=== PATIENT | female | born 1935 | race Caucasian/White ===

== ENCOUNTER 2020-07-24 08:36 | Observation (INO) | payer MEDICARE, BC ==
--- NOTE | 2020-07-24 09:03 | EDM.PDOC ---
ED HPI GENERAL MEDICAL PROBLEM - General Chief Complaint: Abdominal Pain Stated Complaint: ABD PAIN Time Seen by Provider: 07/24/20 08:50 Source of Information: Reports: Patient History Limitations: Reports: No Limitations - History of Present Illness INITIAL COMMENTS - FREE TEXT/NARRATIVE: has not been able to have BM since friday states she has abdominal pain , pain in the rectal area since she made attempts to go has nausea but no vomiting no blood in stools Onset Date: 07/22/20 Duration: Day(s): (3), Getting Worse Location: Reports: Abdomen Improves with: Reports: None Worsens with: Reports: None Associated Symptoms: Reports: Loss of Appetite, Malaise abdomen pain Pain Score (Numeric/FACES): 5 - Related Data Allergies Allergy/AdvReac Type Severity Reaction Status Date / Time latex Allergy Severe Itching Verified 07/24/20 19:54 shrimp Allergy Severe Itching Verified 07/24/20 19:53 Home Meds: Home Meds Clopidogrel [Plavix] 75 mg PO DAILY 07/24/20 [History] Furosemide [Lasix] 40 mg PO DAILY 07/24/20 [History] Lactobacillus 3/Fos/Pantethine [Probiotic & Acidophilus] 1 each PO DAILY 07/24/20 [History] Levothyroxine [Synthroid] 100 mcg PO ACBREAKFAST 07/24/20 [History] Sertraline HCl [Zoloft] 50 mg PO BEDTIME 07/24/20 [History] Simvastatin [Zocor] 40 mg PO BEDTIME 07/24/20 [History] Potassium Chloride 20 meq PO DAILY #60 cap.er 07/25/20 [Rx] polyethylene glycoL 3350 [MiraLAX] 17 gm PO DAILY #1 jar 07/25/20 [Rx] ED ROS GENERAL - Review of Systems Review Of Systems: See Below Constitutional: Reports: Weakness HEENT: Reports: No Symptoms Respiratory: Reports: No Symptoms Cardiovascular: Reports: No Symptoms Endocrine: Reports: No Symptoms GI/Abdominal: Reports: Constipation (with over incontinence). Denies: Flatus Skin: Reports: No Symptoms Neurological: Reports: No Symptoms Psychiatric: Reports: No Symptoms Hematologic/Lymphatic: Reports: No Symptoms ED EXAM, GI/ABD - Physical Exam Exam: See Below Exam Limited By: No Limitations General Appearance: Alert, WD/WN Eyes: Bilateral: EOMI Throat/Mouth: Normal Inspection Head: Atraumatic, Normocephalic Neck: Supple, Non-Tender Respiratory/Chest: No Respiratory Distress, Lungs Clear Cardiovascular: Regular Rate, Rhythm GI/Abdominal Exam: Soft, Distended, Abnormal Bowel Sounds (hypoactive) Rectal (Female) Exam: Fecal Impaction, Rectal Fissure (?), Tenderness (austyn inteh rectal shpiunter, rectal vault empty), Other (increased rectal tone) Extremities: Normal Inspection Neurological: Alert, Oriented, CN II-XII Intact Psychiatric: Normal Affect Skin Exam: Warm, Dry, Intact Course - Vital Signs Last Recorded V/S: Last Vital Signs Temp 36.2 C 07/25/20 08:00 Pulse 74 07/25/20 08:00 Resp 16 07/25/20 08:00 BP 138/71 07/25/20 08:00 Pulse Ox 99 07/25/20 08:00 - Orders/Labs/Meds Labs: Laboratory Tests 07/24/20 07/24/20 07/24/20 Range/Units 10:12 13:45 13:45 WBC 6.6 (4.5-12.0) X10-3/uL RBC 4.20 (3.23-5.20) x10(6)uL Hgb 13.6 (11.5-15.5) g/dL Hct 40.6 (30.0-51.3) % MCV 96.6 H (80-96) fL MCH 32.3 (27.7-33.6) pg MCHC 33.5 (32.2-35.4) g/dL RDW 13.8 (11.5-15.5) % Plt Count 214 (125-369) X10(3)uL Sodium 142 (135-145) mmol/L Potassium 3.4 L (3.5-5.3) mmol/L Chloride 105 (100-110) mmol/L Carbon Dioxide 26 (21-32) mmol/L BUN 18 (7-18) mg/dL Creatinine 1.1 H (0.55-1.02) mg/dL Est Cr Clr Drug Dosing 32.13 mL/min Estimated GFR (MDRD) 47 L (>60) BUN/Creatinine Ratio 16.4 (9-20) Glucose 97 (80-116) mg/dL Calcium 9.4 (8.6-10.2) mg/dL Urine Color Yellow (YELLOW) Urine Appearance Clear (CLEAR) Urine pH 5.0 (5.0-6.5) Ur Specific [place] 1.010 (1.010-1.025) Urine Protein Negative (NEGATIVE) mg/dL Urine Glucose (UA) Normal (NORMAL) mg/dL Urine Ketones Negative (NEGATIVE) mg/dL Urine Occult Blood Negative (NEGATIVE) Urine Nitrite Negative (NEGATIVE) Urine Bilirubin Negative (NEGATIVE) Urine Urobilinogen Normal (NEGATIVE) mg/dL Ur Leukocyte Esterase Negative (NEGATIVE) Urine WBC 0-5 (0-5) Ur Squamous Epith Cells Occasional (NS,R,O) Urine Bacteria Few H (NS) Meds: Medications Discontinued Medications Generic Name Dose Route Start Last Admin Trade Name Freq PRN Reason Stop Dose Admin Bisacodyl 10 mg 07/24/20 10:03 07/24/20 10:31 Dulcolax RECTAL 07/24/20 10:04 10 mg ONETIME ONE Administration Clopidogrel Bisulfate 75 mg 07/25/20 09:00 07/25/20 10:27 Plavix PO 75 mg DAILY TOMASZ Administration Sodium Chloride 1,000 mls @ 100 mls/hr 07/24/20 13:45 07/24/20 16:00 Normal Saline IV 100 mls/hr ASDIRECTED TOMASZ Administration Potassium Chloride/Sodium Chloride 1,000 mls @ 100 mls/hr 07/24/20 18:30 07/24/20 22:13 Normal Saline With 20 Meq Kcl IV 07/25/20 07:59 100 mls/hr ASDIRECTED TOMASZ Administration Potassium Chloride/Sodium Chloride 1,000 mls @ 100 mls/hr 07/25/20 08:00 07/25/20 10:09 Normal Saline With 20 Meq Kcl IV Not Given Q10H TOMASZ Iopamidol 100 ml 07/24/20 13:51 07/24/20 14:32 Isovue-370 (76%) IV 07/24/20 13:52 81 ml . DIRECTED ONE Administration Lactulose 20 gm 07/24/20 18:23 07/24/20 20:13 Cephulac PO 07/24/20 18:24 Not Given ONETIME ONE Levothyroxine Sodium 100 mcg 07/25/20 07:30 07/25/20 10:27 Synthroid PO 100 mcg ACBREAKFAST TOMASZ Administration Lidocaine HCl Confirm 07/24/20 09:51 07/24/20 10:30 Glydo Administered 07/24/20 09:52 Not Given Dose 6 ml .ROUTE .STK-MED ONE Lidocaine HCl 1 ml 07/24/20 11:00 Glydo .XX ASDIRECTED TOMASZ Lidocaine HCl 6 ml 07/24/20 11:47 07/24/20 10:00 Glydo .XX 6 ml ASDIRECTED TOMASZ Administration Lidocaine/Prilocaine 5 gm 07/24/20 09:48 07/24/20 10:27 Emla Crm TOP 07/24/20 09:49 Not Given ONETIME ONE Lorazepam 0.5 mg 07/24/20 15:38 07/24/20 16:00 Ativan IVPUSH 07/24/20 15:39 0.5 mg ONETIME ONE Administration Polyethylene Glycol 17 gm 07/25/20 09:45 07/25/20 10:28 Miralax PO 17 gm DAILY TOMASZ Administration Potassium Chloride 20 meq 07/25/20 10:00 07/25/20 10:27 Klor-Con M20 PO 20 meq DAILY TOMASZ Administration Sertraline HCl 50 mg 07/24/20 21:30 07/24/20 22:16 Zoloft PO 07/24/20 21:31 Not Given ONETIME ONE Sertraline HCl 50 mg 07/25/20 21:00 Zoloft PO BEDTIME TOMASZ - Re-Assessments/Exams Free Text/Narrative Re-Assessment/Exam: 07/24/20 16:34 Had Xray of abd that was suggestive of partial obstruction pt has had rectal exam : rectal vault empty Suppository : minimal amount of stool , watery stool Enema done : minimal return CT abd done: suggestive of partial obstruction Attempts made again by pt to have BM : minimal Pt given Ativan to help relax her Another rectal exam don e: only watery foul smelling stool noted Call made to Hospitalist : plan admit for bowel rest and further attempts to disimpact Departure - Departure Time of Disposition: 13:20 Disposition: Refer to Observation Condition: Fair Clinical Impression: Abdominal pain, Small bowel obstruction, Partial obstruction of small intestine - Discharge Information *PRESCRIPTION DRUG MONITORING PROGRAM REVIEWED*: Not Applicable *COPY OF PRESCRIPTION DRUG MONITORING REPORT IN PATIENT KERRI: Not Applicable Sepsis Event Note (ED) - Evaluation Sepsis Screening Result: No Definite Risk
[2020-07-24] MEDS ORDERED: Lidocaine/Prilocaine 2.5-2.5% Crm 5 GM Tube TOP ONE (09:48)
[2020-07-24] MEDS ORDERED: Lidocaine 2% HCl 6 ML JEL.PF.APP ONE (09:51)
[2020-07-24] MEDS ORDERED: Bisacodyl 10 MG Supp RECTAL ONE (10:03)
[2020-07-24] MEDS ORDERED: Lidocaine 2% HCl 6 ML JEL.PF.APP SCH ×2 (11:00→11:47)
--- NOTE | 2020-07-24 11:27 | CR ---
INDICATION: Abdomen pain. ABDOMEN: Four images of the abdomen in supine and upright projection were obtained 07/24/20 - no comparison. 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 Somewhat increased density in the lower pelvis may be on the basis of urinary bladder distention and presence of the uterus, although process such as ascites would be a consideration also. Multiple air-fluid levels are noted in the large and small bowel without a gross degree of distention of the bowel to suggest a longstanding mechanically obstructive process. Rather, the appearance more likely is on the basis of a process such as gastroenteritis or possibly a paralytic ileus such as secondary to inflammatory disease - pancreatitis, cholecystitis, diverticulitis, etc. This should be correlated clinically. Calcifications are noted in the abdominal aorta and iliac arteries. No definite mass lesions or nonvascular pathologic calcifications were identified. IMPRESSION: Multiple air-fluid levels in the large and small bowel, etiology is indeterminate, could be on the basis of paralytic ileus or possibly gastroenteritis, but should be correlated clinically. An early or partial mechanically obstructive process would be a consideration. Report was called to Dr. Vega at 1041 hours. [facility]
[2020-07-24] MEDS ORDERED: Sodium Chloride 0.9% 1,000 ML IV SCH (13:45)
[2020-07-24] MEDS ORDERED: Iopamidol 755 Mg/ML 100 ML Bottle IV ONE (13:51)
[2020-07-24] MEDS ORDERED: LORazepam 2 MG/ML SDV IVPUSH ONE (15:38)
[2020-07-24] MEDS ORDERED: Lactulose Soln 10 GM/15 ML 30 ML UD Cup PO ONE (18:23)
[2020-07-24] MEDS ORDERED: NS + KCl 20mEq/L 1,000 ML IV SCH (18:30)
[2020-07-24] MEDS ORDERED: Sertraline 50 MG Tab *PTOM PO SCH (21:00)
[2020-07-24] MEDS: Sertraline 50 MG Tab PO ONE ×2 (22:13→22:16)
--- NOTE | 2020-07-25 06:54 | CT ---
INDICATION: Generalized abdominal pain, question obstruction. CT ABDOMEN AND PELVIS WITH CONTRAST: Spiral 3.75 mm axial sections were obtained through the abdomen and pelvis with oral and IV contrast (80 cc Isovue-370 at 2 cc per second with 100 second delay) with sagittal and coronal reconstructions 07/24/20 - no comparison. Total exam DLP was 346.85 mGy-cm. The heart is enlarged. The pericardium is very minimally thickened. The lower lung lopes and pleural spaces visualized showed no definite active infiltrate or effusion. However, there does appear to be some patchy heavy markings at the lingula which could be on the basis of fibrosis, but do make it difficult to exclude a minimal patchy bronchopneumonia. The liver appeared unremarkable. No gallstones were demonstrated. Irregularity of the renal cortices is noted, to a greater extent on the right than left compatible with renal cortical scarring, no obstructive uropathy or definite renal calculi were seen. The spleen appears unremarkable. The pancreas appeared grossly normal. The common bile duct is dilated at approximately 11 mm, a specific etiology was not identified. The possibility of a common bile duct neoplasm or a small neoplasm of the pancreatic head is difficult to exclude - MRI may be helpful for further evaluation in that regard if obstruction at the level of the common bile common duct is expected clinically. Fairly extensive calcifications are noted in the abdominal aorta, iliac arteries, and femoral arteries with some calcifications in the splenic artery and superior mesenteric artery. No definite retroperitoneal mass was seen. The appendix is absent consistent with history of its removal. No evidence of free air was identified. Multiple air-fluid levels are noted in the colon, the colon appears slightly prominent in caliber. There does appear to be fluid throughout the colon raising question of a process such as gastroenteritis. Gas and stool is noted in the rectum. The bowel is somewhat indistinct in that area making it difficult to exclude a partially obstructive process. Additional examination, such as colonoscopy or barium enema may be helpful. The urinary bladder appeared normal. A dextroconcave rotoscoliosis of the thoracolumbar spine is noted of moderately severe degree. Hypertrophic degenerative changes and disk disease are noted throughout the thoracolumbosacral spine with vacuum disk phenomena at almost all levels. No additional organomegaly, mass lesions, or free fluid collections were identified in the abdomen or pelvis. IMPRESSION: 1. Somewhat distended colon filled with fluid with multiple air-fluid levels, gastroenteritis felt to be most likely although a distal partial obstructive process at the level of the rectosigmoid is difficult to exclude. This should be correlated clinically. Followup studies may be helpful including colonoscopy or barium enema. 2. Post appendectomy. 3. Minimal heavy markings at the lingula which could represent fibrosis, possibly minimal patchy bronchopneumonia - correlate clinically. 4. Scoliosis. 5. Hypertrophic degenerative changes and disk disease thoracolumbosacral spine. 6. 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 7. Renal cortical scarring, right somewhat greater than left. 8. Dilated common bile duct, no definite etiology is identified. This should be correlated clinically and with lab values. If obstructive biliary tree is suspected clinically, additional examination may be warranted such as MRI - MRCP with attention to the pancreatic head area. 9. Degenerative changes are noted at the hip joints, right greater than left with loss of joint space, much more severe on the right than left. 10. Hypertrophic degenerative changes sacroiliac joints somewhat greater on the right than left. Report was called to Dr. Vega at 1522 hours. [facility]
[2020-07-25] MEDS ORDERED: Levothyroxine 100 MCG Tab *PTOM PO SCH (07:30)
[2020-07-25] MEDS ORDERED: NS + KCl 20mEq/L 1,000 ML IV SCH (08:00)
[2020-07-25] MEDS ORDERED: Clopidogrel 75 MG Tab *PTOM PO SCH (09:00)
[2020-07-25] MEDS ORDERED: Polyethylene Glycol 3350 Powder 17 GM Packet PO SCH (09:45)
[2020-07-25] MEDS ORDERED: Potassium Chloride 20 MEQ Tab.ER PO SCH (10:00)
--- NOTE | 2020-07-25 10:37 | HP ---
ADMISSION DATE: 07/24/2020 CHIEF COMPLAINT: Abdominal pain and constipation. HISTORY OF PRESENT ILLNESS: Ms. Arechiga is an 85-year-old woman from [place], [place] with a history of CVA, hypothyroidism, hyperlipidemia, anxiety, and low back pain. According to the patient, she was in her usual state of health until approximately Friday 5 days ago, and at that time, she began to have some mild cramping and did not have a bowel movement. On Friday, she had increased amount of pain, and Friday, 3 days ago, she began to have difficulty passing urine. She came in to the emergency room yesterday because of cramping. She had a slight liquid stool, but was distended and still not had a bowel movement. She was x-rayed and a CT of the abdomen was done showing partial bowel obstruction felt to be due to constipation. She was given enemas in the emergency room, laxative and had no results, so she was admitted for further treatment overnight. The patient was given oral lactulose and last evening had a large BM, she states much larger than average BM for her. Subsequent to that time, she has passed some liquid stool and her cramping has completely resolved. The patient denies any episodes of pain, cramping, etc, similar to this. She states she has not had a colonoscopy done. She has not had abdominal surgeries or injuries to the abdomen. PAST MEDICAL HISTORY: She gives a history of a remote CVA without apparent residual. She is status post lumbar laminectomy x2, reverse right shoulder arthroplasty in 2016. She sustained a dog bite to her right leg that resulted in septic arthritis of the right knee. She was on IV antibiotics for 2-1/2 weeks and oral antibiotics for another 3 months after that. She was subsequently bitten on the left knee by the same dog later without serious sequelae. She is status post appendectomy, bilateral cataract surgery. She is 4, para 4, with normal deliveries. She has never had jaundice, hepatitis, or blood transfusions. She has chronic hypothyroidism. She has had right wrist fracture and osteoarthritis of the neck. She has had depression and hyperlipidemia. She has a history of chronic venous insufficiency with ankle edema and has been on diuretic for many years. She has had colonoscopy in February of 2018 for diarrhea that showed a tubular adenoma. MEDICATIONS: 1. Simvastatin 40 mg daily. 2. Plavix 75 mg daily. 3. Furosemide 40 mg daily. 4. Levothyroxine 100 mcg daily. 5. Sertraline 50 mg daily. ALLERGIES: Penicillin, reaction not listed; Etodolac caused hives; Lipitor caused muscle pains; shellfish, not listed. HABITS: [id number] history of cigarette smoking. She smokes 5 to 6 cigarettes per day now. Rare alcohol. FAMILY AND SOCIAL HISTORY: The patient's father at 83 of heart disease. Mother at 83 of heart disease. One brother has cancer. Another brother is healthy. SOCIAL HISTORY: The patient has been for 52 years. She lives with her in [place]. 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 She has a daughter in [place], a daughter in [place], a son in [place], and a son in [place]. REVIEW OF SYSTEMS: GENERAL: No seizure, syncope, or recent significant weight change. SKIN: Negative for rash. HEENT: She does report poor and declining hearing. No sore throat or URI. No cough or purulent sputum. No chest pain or palpitations. No abdominal pain prior to this episode. No hematochezia or melena. No hematuria or UTI symptoms. No joint inflammation. She reports chronic ankle swelling but wears support stockings everyday. No skin rash. PHYSICAL EXAMINATION: GENERAL: She is alert, comfortable, and pleasant. She is a somewhat poor historian for details, however. VITAL SIGNS: Blood pressure 138/71, pulse 74 and regular, respirations normal, temperature 97.2, weight 132 pounds, and O2 saturation 99% on room air. SKIN: Anicteric. Warm and dry without rash. HEENT: Show pupils to be equal and reactive. Oropharynx is clear. LUNGS: Clear to the bases. HEART: Regular with a 2/6 systolic murmur over the precordium. Carotids are brisk without bruits. There is no JVD. ABDOMEN: Normal bowel sounds. Slightly tympanitic. No significant distention. EXTREMITIES: Warm, well perfused. Trace edema at the sock lines. LABORATORY DATA: White count 5900, hemoglobin 13.4. Admission potassium 3.4, this morning up to 3.6, magnesium 1.7. COVID negative. Urinalysis negative. Initial abdominal x-rays just suggested partial bowel obstruction. X-ray of the abdomen done this morning shows gas throughout the colon with remnants of stool visible and improvement in previous air-fluid levels. ASSESSMENT: Constipation, resolved. PLAN: We will advance her diet, increase activity, place her on oral potassium, and we will likely let her be discharged later today if she tolerates p.o. intake well. /[id number] CA/ANA
--- NOTE | 2020-07-25 10:50 | DISCH ---
DISCHARGE DATE: 07/25/2020 PRIMARY FINAL DIAGNOSIS: Obstipation with bowel obstruction. OTHER DIAGNOSES: 1. History of cerebrovascular accident. 2. Hypothyroidism. 3. Mild cognitive deficits. 4. Depression. 5. Hearing loss. 6. Hypokalemia. OPERATIONS: None. COMPLICATIONS: None. SUMMARY: Mrs. Arechiga is an 85-year-old woman who came into the emergency room on the day of admission because of several days of no bowel movement. She was having strong cramping. She was given multiple enemas in the ER, laxative, IV fluid and did not pass stool. She was admitted to the hospital. She was given an oral dose of lactulose and last evening she had a large bowel movement that she reports was quite a bit larger than a normal stool for her. Subsequent to that, her cramping went away. Her appetite has returned and she states she feels back to normal. Repeat abdominal x-ray this morning shows resolution of air-fluid levels, but still a moderate amount of gas in the intestine. The patient is discharged to home in improved condition to continue medications as follows: 1. Simvastatin 40 mg at bedtime. 2. Potassium 10 mEq two tablets daily. 3. MiraLAX 17 g daily. 4. Probiotic one daily. 5. Furosemide 40 mg daily. 6. Sertraline 50 mg at bedtime. 7. Levothyroxine 100 mcg daily. 8. Plavix 75 mg daily. She is to have a full followup appointment with her regular doctor in 5 to 7 days to re-evaluate her abdomen and recheck her serum potassium. She is to call should there be questions or problems prior to that time. /[id number] CA/ANA
--- NOTE | 2020-07-25 12:20 | CR ---
INDICATION: Abdominal pain. ABDOMEN 2 VIEW: Three images of the abdomen in supine and upright projections were obtained 07/25/20 and compared with 07/24/20 again revealing multiple air- fluid levels with mildly distended large bowel. The air-fluid levels are showing evidence of oral contrast which was utilized for CT of the abdomen from 07/24/20. The contrast is within the large bowel and again does not suggest a mechanically obstructive process of a complete nature, but could represent a mechanically obstructive process. Gastroenteritis remains a possibility, as well as paralytic ileus although there does appear to be significant flow into the colon from the small bowel with little residual if any in the small bowel. Urinary bladder appeared normal filled with IV contrast from the previous CT. Study was otherwise unremarkable as far as significant acute findings. IMPRESSION: Continued air-fluid levels in the colon - specifically air contrast levels with flow of barium contrast out of the small bowel into the colon and still no significant distention of the colon. Findings remain compatible with a relative paralytic ileus or a partially obstructive process at the distal colon. SUS[facility]
[2020-07-25] MEDS ORDERED: Sertraline 50 MG Tab *PTOM PO SCH (21:00)
== END 2020-07-25 13:40 | disposition home or self-care (01) ==
LOC: FB.ED 08:36 → FB.MS 16:45
PROVIDERS: ADMIT Family Medicine; ATTEND Family Medicine
DX: K59.00 Constipation, unspecified (principal); K56.609 Unspecified intestinal obstruction, unspecified as to partial versus complete obstruction; E03.9 Hypothyroidism, unspecified; R41.89 Other symptoms and signs involving cognitive functions and awareness; E87.6 Hypokalemia; H91.90 Unspecified hearing loss, unspecified ear; F41.9 Anxiety disorder, unspecified; E78.5 Hyperlipidemia, unspecified; Z90.49 Acquired absence of other specified parts of digestive tract; Z98.890 Other specified postprocedural states; Z88.8 Allergy status to other drugs, medicaments and biological substances; Z88.0 Allergy status to penicillin; Z91.013 Allergy to seafood; Z20.828 Contact with and (suspected) exposure to other viral communicable diseases; Z86.73 Personal history of transient ischemic attack (TIA), and cerebral infarction without residual deficits; Z79.899 Other long term (current) drug therapy; Z79.890 Hormone replacement therapy; Z79.02 Long term (current) use of antithrombotics/antiplatelets
CPT/HCPCS: 36415; 74019; 74177; 80048; 81001; 83735; 85025; 85027; A9270; J2060; J3480; J7030; Q9967; U0002; 96361; 96365; 96366; 96374; 96375; 99217; 99218; 99284; 99285-25; G0378

== ENCOUNTER 2021-09-21 17:20 | Emergency (ER) | payer MEDICARE, BC ==
[2021-09-21] MEDS ORDERED: Morphine 2 MG/ML SYRINGE IVPUSH ONE (17:53)
[2021-09-21] MEDS ORDERED: Sodium Chloride 0.9% 10 ML Syringe FLUSH PRN (17:53)
[2021-09-21] MEDS ORDERED: Sodium Chloride 0.9% 1,000 ML IV SCH (18:00)
--- NOTE | 2021-09-21 18:01 | EDM.PDOC ---
<Shawn Stringer - Last Filed: 09/21/21 19:05> ED HPI GENERAL MEDICAL PROBLEM - General Stated Complaint: ABD PAIN Time Seen by Provider: 09/21/21 17:30 Source of Information: Reports: Patient History Limitations: Reports: No Limitations - History of Present Illness INITIAL COMMENTS - FREE TEXT/NARRATIVE: Patient is a an 86 YO WF who presented to the ED because of abdominal pain which started this morning. The pain is sharp and squeezing,6/10, steady. There is no nausea,vomiting, diarrhea or constipation. Her last BM was this morning, scant and normal. There is no fever, chills, cough or cold. No urinary symptoms. - Related Data Allergies Allergy/AdvReac Type Severity Reaction Status Date / Time latex Allergy Severe Itching Verified 09/21/21 17:38 shrimp Allergy Severe Itching Verified 09/21/21 17:38 Home Meds: Home Meds Clopidogrel [Plavix] 75 mg PO DAILY 07/24/20 [History] Furosemide [Lasix] 40 mg PO DAILY 07/24/20 [History] Lactobacillus 3/Fos/Pantethine [Probiotic & Acidophilus] 1 each PO DAILY 07/24/20 [History] Levothyroxine [Synthroid] 100 mcg PO ACBREAKFAST 07/24/20 [History] Sertraline HCl [Zoloft] 50 mg PO BEDTIME 07/24/20 [History] Simvastatin [Zocor] 40 mg PO BEDTIME 07/24/20 [History] Potassium Chloride 20 meq PO DAILY #60 cap.er 07/25/20 [Rx] polyethylene glycoL 3350 [MiraLAX] 17 gm PO DAILY #1 jar 07/25/20 [Rx] Past Medical History HEENT History: Reports: Cataract, Impaired Vision Cardiovascular History: Reports: Heart Failure, High Cholesterol Respiratory History: Reports: None Other Gastrointestinal History: Partial SBO Musculoskeletal History: Reports: Other (See Below) Other Musculoskeletal History: Dog bite left leg Neurological History: Reports: CVA Endocrine/Metabolic History: Reports: Hypothyroidism Oncologic (Cancer) History: Reports: Other (See Below) Other Oncologic History: Skin cancer many years ago on face - Infectious Disease History Infectious Disease History: Reports: Chicken Pox, Measles, Mumps - Past Surgical History GI Surgical History: Reports: Appendectomy, Colonoscopy Musculoskeletal Surgical History: Reports: Other (See Below) Other Musculoskeletal Surgeries/Procedures:: back surgery x2 Social & Family History - Family History Family Medical History: No Pertinent Family History - Caffeine Use Caffeine Use: Reports: Coffee ED ROS GENERAL - Review of Systems Review Of Systems: See Below Constitutional: Reports: No Symptoms HEENT: Reports: No Symptoms Respiratory: Reports: No Symptoms Cardiovascular: Reports: No Symptoms Endocrine: Reports: No Symptoms GI/Abdominal: Reports: Abdominal Pain : Reports: No Symptoms Musculoskeletal: Reports: No Symptoms Skin: Reports: No Symptoms Neurological: Reports: No Symptoms Psychiatric: Reports: No Symptoms ED EXAM, GI/ABD - Physical Exam Exam: See Below Exam Limited By: No Limitations General Appearance: Alert, No Apparent Distress Ears: Normal External Exam, Normal Canal Nose: Normal Inspection, Normal Mucosa, No Blood Throat/Mouth: Normal Inspection, Normal Lips, Normal Teeth, Normal Oropharynx, Normal Voice Head: Atraumatic, Normocephalic Neck: Normal Inspection, Supple, Non-Tender, Full Range of Motion Respiratory/Chest: No Respiratory Distress, Lungs Clear, Normal Breath Sounds, No Accessory Muscle Use, Chest Non-Tender Cardiovascular: Normal Peripheral Pulses, Regular Rate, Rhythm, No Edema, No JVD, No Murmur, No Rub GI/Abdominal Exam: Normal Bowel Sounds, Soft, No Organomegaly, No Distention, No Abnormal Bruit, Other (tenderness LLQ/RLQ/Suprapubic area) Extremities: Normal Inspection, Normal Range of Motion, Non-Tender, No Pedal Edema, Normal Capillary Refill Neurological: Alert, Oriented, CN II-XII Intact Departure - Departure Disposition: Refer to Observation Clinical Impression: Gastroenteritis, Constipation, Anxiety - Discharge Information Instructions: Viral Gastroenteritis, Adult, [id number], Abdominal Pain, Adult, [id number], Constipation, Adult, [id number] Referrals: Balwinder Mayes PA-C [Primary Care Provider] - Additional Instructions: You should add MiraLAX and senna plus to the patient's bowel regimen. You should give the patient 1 capful, 17 g of MiraLAX daily and 1 tablet of senna plus. You will need to adjust the amount that you give her so that she can have bowel movements that are formed but soft and easy to pass. She would also benefit from follow-up with her primary care provider and evaluation for treatment for anxiety and depression. <Jose A Horn W - Last Filed: 09/21/21 22:32> Course - Vital Signs Text/Narrative:: Review of labs and CT scan are quite unremarkable. However, the patient does seem to have a mild stool burden. We gave the patient 0.25 mg of lorazepam because she seems to be quite anxious and her daughter informed us that she lost both her and her son over the last 2 months. We also gave her an enema. She was able to have a bowel movement and states that her pain has not been relieved. Last Recorded V/S: Last Vital Signs Temp 36.2 C 09/21/21 17:20 Pulse 60 09/21/21 17:20 Resp 18 09/21/21 17:20 BP 176/81 H 09/21/21 17:20 Pulse Ox 98 09/21/21 17:20 - Orders/Labs/Meds Orders: Active Orders 24 hr Category Date Time Status Abdomen Pelvis w Cont [CT] Stat Exams 09/21/21 19:17 Taken Sodium Chloride 0.9% [Normal Saline] 1,000 ml Med 09/21/21 18:00 Active IV ASDIRECTED Sodium Chloride 0.9% [Saline Flush] Med 09/21/21 17:53 Active 10 ml FLUSH ASDIRECTED PRN Saline Lock Insert [OM.PC] Routine Oth 09/21/21 17:53 Ordered Medication Orders Sodium Chloride (Normal Saline) 1,000 mls @ 999 mls/hr IV ASDIRECTED TOMASZ Last Admin: 09/21/21 18:37 Dose: 999 mls/hr Documented by: AMAN Sodium Chloride (Sodium Chloride 0.9% 10 Ml Syringe) 10 ml FLUSH ASDIRECTED PRN PRN Reason: Keep Vein Open Last Admin: 09/21/21 18:37 Dose: 10 ml Documented by: AMAN Labs: Laboratory Tests 09/21/21 09/21/21 09/21/21 Range/Units 18:01 18:15 18:15 WBC 4.5 (3.0-10.3) x10-3/uL RBC 4.13 (3.60-5.20) x10(6)uL Hgb 13.2 (11.4-15.5) g/dL Hct 40.2 (34.2-48.2) % MCV 97.2 (76.7-100.5) fL MCH 31.9 (23.9-33.9) pg MCHC 32.9 (31.9-34.8) g/dL RDW 14.3 (12.3-16.5) % Plt Count 217 (151-488) x10(3)uL MPV 7.3 (7.1-12.4) fL Neut % (Auto) 48.3 (30.8-76.2) % Lymph % (Auto) 34.4 (18.4-52.1) % [place] % (Auto) 14.0 (4.4-15.7) % Eos % (Auto) 2.3 (0.6-8.1) % Baso % (Auto) 1.0 (0.2-1.5) % Neut # (Auto) 2.2 (1.5-6.3) x10-3/uL Lymph # (Auto) 1.5 (1.0-4.4) x10-3/uL Meigs # (Auto) 0.6 (0.3-1.0) x10-3/uL Eos # (Auto) 0.1 (0.0-0.8) x10-3/uL Baso # (Auto) 0.0 (0.0-0.1) x10-3/uL Sodium 139 (135-145) mmol/L Potassium 4.1 (3.5-5.3) mmol/L Chloride 103 (100-110) mmol/L Carbon Dioxide 28 (21-32) mmol/L BUN 17 (7-18) mg/dL Creatinine 1.1 H (0.55-1.02) mg/dL Est Cr Clr Drug Dosing 32.86 mL/min Estimated GFR (MDRD) 47 L (>60) BUN/Creatinine Ratio 15.5 (9-20) Glucose 83 (80-116) mg/dL Calcium 9.2 (8.6-10.2) mg/dL Total Bilirubin 0.6 (0.1-1.3) mg/dL AST 21 (5-25) IU/L ALT 18 (12-36) U/L Alkaline Phosphatase 61 (56-112) IU/L Total Protein 7.4 (6.0-8.0) g/dL Albumin 3.8 (3.2-4.6) g/dL Globulin 3.6 g/dL Albumin/Globulin Ratio 1.1 Amylase 83 (25-115) U/L Lipase (73-393) U/L Urine Color (YELLOW) Urine Appearance (CLEAR) Urine pH (5.0-6.5) Ur Specific [place] (1.010-1.025) Urine Protein (NEGATIVE) mg/dL Urine Glucose (UA) (NORMAL) mg/dL Urine Ketones (NEGATIVE) mg/dL Urine Occult Blood (NEGATIVE) Urine Nitrite (NEGATIVE) Urine Bilirubin (NEGATIVE) Urine Urobilinogen (NEGATIVE) mg/dL Ur Leukocyte Esterase (NEGATIVE) Urine RBC (0-5) Urine WBC (0-5) Ur Squamous Epith Cells (NS,R,O) Urine Bacteria (NS) SARS-CoV-2 RNA (MARY) Negative (NEGATIVE) 09/21/21 09/21/21 Range/Units 18:15 18:48 WBC (3.0-10.3) x10-3/uL RBC (3.60-5.20) x10(6)uL Hgb (11.4-15.5) g/dL Hct (34.2-48.2) % MCV (76.7-100.5) fL MCH (23.9-33.9) pg MCHC (31.9-34.8) g/dL RDW (12.3-16.5) % Plt Count (151-488) x10(3)uL MPV (7.1-12.4) fL Neut % (Auto) (30.8-76.2) % Lymph % (Auto) (18.4-52.1) % [place] % (Auto) (4.4-15.7) % Eos % (Auto) (0.6-8.1) % Baso % (Auto) (0.2-1.5) % Neut # (Auto) (1.5-6.3) x10-3/uL Lymph # (Auto) (1.0-4.4) x10-3/uL [place] # (Auto) (0.3-1.0) x10-3/uL Eos # (Auto) (0.0-0.8) x10-3/uL Baso # (Auto) (0.0-0.1) x10-3/uL Sodium (135-145) mmol/L Potassium (3.5-5.3) mmol/L Chloride (100-110) mmol/L Carbon Dioxide (21-32) mmol/L BUN (7-18) mg/dL Creatinine (0.55-1.02) mg/dL Est Cr Clr Drug Dosing mL/min Estimated GFR (MDRD) (>60) BUN/Creatinine Ratio (9-20) Glucose (80-116) mg/dL Calcium (8.6-10.2) mg/dL Total Bilirubin (0.1-1.3) mg/dL AST (5-25) IU/L ALT (12-36) U/L Alkaline Phosphatase (56-112) IU/L Total Protein (6.0-8.0) g/dL Albumin (3.2-4.6) g/dL Globulin g/dL Albumin/Globulin Ratio Amylase (25-115) U/L Lipase 216 (73-393) U/L Urine Color Yellow (YELLOW) Urine Appearance Clear (CLEAR) Urine pH 6.5 (5.0-6.5) Ur Specific [place] 1.005 L (1.010-1.025) Urine Protein Negative (NEGATIVE) mg/dL Urine Glucose (UA) Normal (NORMAL) mg/dL Urine Ketones Negative (NEGATIVE) mg/dL Urine Occult Blood Negative (NEGATIVE) Urine Nitrite Negative (NEGATIVE) Urine Bilirubin Negative (NEGATIVE) Urine Urobilinogen Normal (NEGATIVE) mg/dL Ur Leukocyte Esterase Negative (NEGATIVE) Urine RBC 0-5 (0-5) Urine WBC 0-5 (0-5) Ur Squamous Epith Cells Occasional (NS,R,O) Urine Bacteria Rare H (NS) SARS-CoV-2 RNA (MARY) (NEGATIVE) Meds: Medications Generic Name Dose Route Start Last Admin Trade Name Freq PRN Reason Stop Dose Admin Sodium Chloride 1,000 mls @ 999 mls/hr 09/21/21 18:00 09/21/21 18:37 Normal Saline IV 999 mls/hr ASDIRECTED TOMASZ Administration Sodium Chloride 10 ml 09/21/21 17:53 09/21/21 18:37 Sodium Chloride 0.9% 10 Ml Syringe FLUSH 10 ml ASDIRECTED PRN Administration Keep Vein Open Discontinued Medications Generic Name Dose Route Start Last Admin Trade Name Freq PRN Reason Stop Dose Admin Sodium Chloride 500 mls @ 999 mls/hr 09/21/21 20:47 09/21/21 21:09 Normal Saline IV 09/21/21 21:17 999 mls/hr .BOLUS ONE Administration Iopamidol 75 ml 09/21/21 19:32 09/21/21 20:02 Iopamidol 755 Mg/Ml 75 Ml Bottle IV 09/21/21 19:33 75 ml ASDIRECTED ONE Administration Lorazepam 0.25 mg 09/21/21 21:06 09/21/21 21:43 Lorazepam 2 Mg/Ml Sdv IVPUSH 09/21/21 21:07 0.25 mg ONETIME ONE Administration Morphine Sulfate 2 mg 09/21/21 17:53 09/21/21 18:32 Morphine 2 Mg/Ml Syringe IVPUSH 09/21/21 17:54 2 mg ONETIME ONE Administration Sodium Biphosphate/Sodium Phosphate 133 ml 09/21/21 20:48 09/21/21 21:09 Sodium Phosphate,Monobasic/Sodium Phosphate,Dibasic Enema 133 Ml Bottle RECTAL 09/21/21 20:49 133 ml ONETIME ONE Administration Departure - Departure Time of Disposition: 22:30 Condition: Good - Discharge Information *PRESCRIPTION DRUG MONITORING PROGRAM REVIEWED*: Not Applicable *COPY OF PRESCRIPTION DRUG MONITORING REPORT IN PATIENT KERRI: Not Applicable Sepsis Event Note (ED) - Focused Exam Vital Signs: Vital Signs Temp Pulse Resp BP Pulse Ox 09/21/21 17:20 36.2 C 60 18 176/81 H 98
[2021-09-21] MEDS ORDERED: Iopamidol 755 Mg/ML 75 ML Bottle IV ONE (19:32)
[2021-09-21] MEDS ORDERED: Sodium Chloride 0.9% 500 ML IV ONE (20:47)
[2021-09-21] MEDS ORDERED: Sodium Phosphate,Monobasic/Sodium Phosphate,Dibasic Enema 133 ML Bottle RECTAL ONE (20:48)
[2021-09-21] MEDS ORDERED: LORazepam 2 MG/ML SDV IVPUSH ONE (21:06)
== END 2021-09-21 22:50 | disposition home or self-care (01) ==
LOC: FB.ED 17:20
DX: K52.9 Noninfective gastroenteritis and colitis, unspecified (principal); K59.00 Constipation, unspecified; F41.9 Anxiety disorder, unspecified; E78.00 Pure hypercholesterolemia, unspecified; I50.9 Heart failure, unspecified; E03.9 Hypothyroidism, unspecified; Z86.73 Personal history of transient ischemic attack (TIA), and cerebral infarction without residual deficits; Z91.040 Latex allergy status; Z91.018 Allergy to other foods; Z79.02 Long term (current) use of antithrombotics/antiplatelets; Z79.899 Other long term (current) drug therapy
CPT/HCPCS: 36415; 74177; 80053; 81001; 82150; 83690; 85025; 96374; 96375; 99284-25; J2060; J2270; J7030; J7040; Q9967; U0002

== ENCOUNTER 2023-05-06 13:09 | Emergency (ER) | payer MEDICARE, BC ==
[2023-05-06 13:50] LABS: BASOPHILS PERCENT AUTO 0.5 % (0.2-1.5); BLOOD UREA NITROGEN,BUN 12 mg/dL (7-18); BUN/CREATININE RATIO 13.3 (9-20); CALCIUM 9.1 mg/dL (8.6-10.2); CARBON DIOXIDE,CO2 27 mmol/L (21-32); CHLORIDE,CL 96 mmol/L (100-110); CREATININE 0.9 mg/dL (0.55-1.02); EOSINOPHILS PERCENT AUTO 0.8 % (0.6-8.1); ESTIMATED GFR 62 mL/min (>60); GLUCOSE RANDOM 96 mg/dL (80-116); HEMOGLOBIN 13.2 g/dL (11.4-15.5); LYMPHOCYTES ABSOLUTE AUTO 0.9 x10-3/uL (1.0-4.4); LYMPHOCYTES PERCENT AUTO 17.7 % (18.4-52.1); MEAN CORPUSCULAR HEMOGLOBIN 33.5 pg (23.9-33.9); MEAN CORPUSCULAR HGB CONC 33.7 g/dL (31.9-34.8); MEAN CORPUSCULAR VOLUME 99.3 fL (76.7-100.5); MEAN PLATELET VOLUME 6.9 fL (7.1-12.4); MONOCYTES ABSOLUTE AUTO 0.7 x10-3/uL (0.3-1.0); MONOCYTES PERCENT AUTO 13.7 % (4.4-15.7); NEUTROPHILS ABSOLUTE AUTO 3.3 x10-3/uL (1.5-6.3); NEUTROPHILS PERCENT AUTO 67.3 % (30.8-76.2); PLATELET COUNT,PLT 215 x10(3)uL (151-488); POTASSIUM,K 3.9 mmol/L (3.5-5.3); RED BLOOD CELL COUNT 3.93 x10(6)uL (3.60-5.20); RED CELL DISTRIBUTION WIDTH 13.9 % (12.3-16.5); SODIUM,NA 131 mmol/L (135-145)
[2023-05-06 13:56] LABS: A/G RATIO 1.1; ALANINE AMINOTRANSFERASE,ALT 19 U/L (12-36); ALBUMIN 3.6 g/dL (3.2-4.6); ALKALINE PHOSPHATASE 79 IU/L (56-112); ASPARTATE AMNIOTRANSFERASE,AST 19 IU/L (5-25); BILIRUBIN TOTAL 0.6 mg/dL (0.1-1.3); PROTEIN TOTAL,TP 6.9 g/dL (6.0-8.0)
[2023-05-06] MEDS: Sodium Chloride 0.9% 10 ML Syringe FLUSH PRN (14:20)
== END 2023-05-06 15:25 | disposition home or self-care (01) ==
LOC: FB.ED 13:09
DX: E87.1 Hypo-osmolality and hyponatremia (principal); R55 Syncope and collapse; R42 Dizziness and giddiness; I11.0 Hypertensive heart disease with heart failure; I50.9 Heart failure, unspecified; E78.00 Pure hypercholesterolemia, unspecified; E03.9 Hypothyroidism, unspecified; F17.210 Nicotine dependence, cigarettes, uncomplicated; Z79.899 Other long term (current) drug therapy; Z91.040 Latex allergy status; Z91.013 Allergy to seafood; Z88.0 Allergy status to penicillin; Z79.02 Long term (current) use of antithrombotics/antiplatelets
CPT/HCPCS: 71045; 80053; 84484; 85025; 93005; 93010; 99284; J3490